=== PATIENT | male | born 1975 | race Caucasian/White ===

== ENCOUNTER 2024-12-21 09:01 | Emergency (ER) | payer BC, OTHER, SELFPAY ==
[2024-12-21 09:05] VITALS: BP 127/98
--- NOTE | 2024-12-21 09:38 | ED.GENMED ---
History of Present Illness
General
Chief Complaint: Musculo-Skeletal Complaint
Source: patient
Exam Limitations: none
Time Seen by Provider: 12/21/24 09:10
History of Present Illness
History of Present Illness:
49yoM with a history of seasonal allergies presenting for evaluation of left lower rib pain. Symptoms began 5 days ago. He reports feeling some mild discomfort while he was in the pool. Pain has been gradually worsening. Pain is worse with
palpation and sneezing. He denies any specific trauma although [place] the water park the day before his symptoms began. He has been taking ibuprofen at nighttime for his pain. Patient was researching his symptoms online and is worried about his
spleen. He denies any shortness of breath, chest pain, URI symptoms, flank pain, fevers, vomiting, urinary symptoms. He is scheduled to go to [place] next week and wants to make sure everything is okay.
Phy Exam
General Physical Exam
General Presentation: well appearing and no apparent distress
General Skin: warm and dry
General Habitus: normal
General Mental: alert
ENT Exam
ENT Exam: normocephalic
Cardiovascular Exam
Cardiovascular Exam: regular rate/rhythm and no murmur
Pulmonary Exam
Pulmonary Exam: lungs clear, no respiratory distress, no rales, no crackles, no rhonchi, no wheezing and other (+Tenderness to L anterior lower ribcage. No skin changes or crepitus. Bilateral breath sounds equal.)
Gastrointestinal Exam
Gastrointestinal Exam: soft, non distended and other (Mild tenderness in LUQ. No other tenderness in abdomen. No rebound or guarding.)
Neurological Exam
Neurological Exam: alert
[place] Coma Scale
Eye Opening: Spontaneous
Verbal Response: Oriented
Motor Response: Obeys Commands
GCS Total Score: 15
Skin Exam
Skin Exam: normal color and warm/dry
Psychiatric Exam
Psychiatric Exam: normal mood/affect
Course
Orders/Labs/Results
Orders:
Orders
12/21/24 09:07
EKG [Electrocardiogram (*1)] Urgent
Reason for Study: Other
Other Reason for Exam: rib pain
12/21/24 09:08
EKG- Treatment ONCE
Ribs, Left 3 View W/PA Chest CR [CR Ribs-left 3 Vw W/pa Chest] Urgent
Comment:
Reason For Exam: pain since going to a water park
12/21/24 09:36
US Abdomen Complete/Upper Urgent
Comment:
Reason For Exam: LUQ pain
12/21/24 10:15
Complete Blood Count/With Diff Urgent
Comprehensive Metabolic Panel Urgent
Lipase Urgent
Abnormal Lab Results
12/21/24
10:15
Monocytes % 11.1 H %
(1.7-9.3)
Chloride 109 H mmol/L
(98-107)
Glucose 101 H mg/dl
(70-99)
12/21/24 10:15
12/21/24 10:15
Vital Signs
Initial and Last Documented VS:
Initial Vital Signs
Temp Pulse Resp BP Pulse Ox
98.2 F 85 18 127/98 99
12/21/24 09:05 12/21/24 09:05 12/21/24 09:05 12/21/24 09:05 12/21/24 09:05
Last Documented Vital Signs
Temp Pulse Resp BP Pulse Ox
98.2 F 85 18 116/83 99
12/21/24 09:05 12/21/24 09:05 12/21/24 09:05 12/21/24 11:32 12/21/24 09:41
MDM/Problems Addressed
Differential Diagnosis Includes:
49yoM here with L lower rib pain x 5 days. Started the day after going to a water park. Patient worried about his spleen. VSS. He is well appearing in no distress. There is mild tenderness to the lower rib area and LUQ on exam. Differential
diagnosis includes but is not limited to: muscular strain, fracture, splenomegaly, PUD
Initial ED plan: Check abdominal labs, upper abdominal ultrasound, rib series x-rays, and EKG.
*Pulse Oximetry
SaO2: 99
Oxygen Mode of Delivery: Room air
Patient hypoxic: no (99%)
*EKG
Interpreted by ED Provider?: Yes
EKG Intrepretation Date: 12/21/24
Heart Rate: 69
Rate: normal
Rhythm: sinus
[place]: normal axis
Interval: normal interval
QRS Pattern: normal QRS
Ischemia: no ischemia
*Critical Care Note
Total Time (30-74mins, 75-104mins- exclusive of procedures): Not Applicable
Update Note
Update Note:
Labs unremarkable including normal white count, renal function, LFTs, and lipase. EKG shows normal sinus rhythm without ischemic changes. Chest x-ray is normal without evidence of rib fractures. Upper abdominal ultrasound shows a complex cyst in
the left kidney which patient was previously aware of. No other acute findings on ultrasound. Copy of radiology report given to patient. Suspect muscular pain. Supportive care discussed. Advised f/u with PCP and ED return precautions reviewed.
Patient discharged in stable condition.
ED Attending Note
-
Portions of this chart may have been created with voice recognition software.� Occasional wrong word or��sound alike� substitutions may have occurred due to the inherent limitations of voice recognition software.
Discharge Plan
Departure
Patient Disposition: Home (Routine Discharge)
Date of Disposition: 12/21/24
Time of Disposition: 12:33
Patient with high blood pressure during this ER visit?: No
Discharge Problem:
Rib pain on left side
Instructions: Rib injury in adults
Referrals:
Darci Loco MD [Family Provider, Family Practice]
Activity Restrictions/Additional Instructions:
Apply heat to affected area. Take Tylenol and ibuprofen for pain.
Please follow-up with your family doctor. Return to the ER with any new or worsening symptoms.
Interventions
Interventions:
*Risk Screen - Suicide Last Done: 12/21/24 09:07
*General Assessment Last Done: 12/21/24 09:07
*Neglect/Abuse Screening Last Done: 12/21/24 09:07
*ED COVID-19 Vaccine History Last Done: 12/21/24 09:07
Discharge Date and Time
Print Language: OMANI
[2024-12-21 10:44] LABS: Hematocrit 42.2 % (39.0-52.0); Hemoglobin 14.2 g/dL (13.0-18.0); Mean Corp Hgb Conc. 33.6 g/dL (33.0-37.0); Mean Corpuscular Volume 89.2 fL (80.0-94.0); Nucleated Red Blood Cells % 0 % (-); Platelet Count 229 10^3/uL (130-400); Red Cell Dist. Width 11.9 % (11.5-14.5)
[2024-12-21 10:48] LABS: ALT (SGPT) 24 U/L (0-50); AST (SGOT) 24 U/L (17-59); Albumin 4.4 g/dl (3.5-5.0); Alkaline Phosphatase 44 U/L (38-126); Blood Urea Nitrogen 15 mg/dl (9-20); Calcium 9.5 mg/dl (8.4-10.2); Carbon Dioxide 28 mmol/L (22-30); Chloride 109 mmol/L (98-107); Glucose 101 mg/dl (70-99); Potassium 4.8 mmol/L (3.5-5.1); Sodium 139 mmol/L (135-145); Total Protein 6.5 g/dl (6.3-8.2); eGFR > 60.00
[2024-12-21 11:32] VITALS: BP 116/83
[2024-12-21 11:58] LABS: Lipase 113 U/L (23-300)
== END 2024-12-21 12:40 | disposition home or self-care (01) ==
LOC: EMR 09:01
PROVIDERS: Physician Assistant; EMERGENCY PHYSICIAN Emergency Medicine; FAMILY PHYSICIAN Family Medicine
DX: R07.81 Pleurodynia (principal); R10.12 Left upper quadrant pain; N28.1 Cyst of kidney, acquired
CPT/HCPCS: 99284; 71101; 76700; 80053; 83690; 85025; 93005